=== PATIENT | female | born 1955 | race African-American/Black ===

== ENCOUNTER 2017-06-17 15:45 | Inpatient (IN) | payer OTHER ==
[~2017-06-17] VITALS: Ht 149.9 cm; Wt 52.6 kg
[~2017-06-17 15:45] MED LIST: ALBUTEROL0.09 MG/A2 IH; ASPIR 8181 MG PO; ATROVENT H0.017 MG/1; BACLOFEN10 MG PO; BENADRYL ALLERG25 M1 PO; CITALOPRAM20 M1 PO; CLARITIN10 MG PO; CLINDAMYCIN HC300 MG PO; COLACE100 MG PO; CYCLOBENZAPRINE5 MG PO; ELMIRON100 MG PO; ENFAMIL D-V400 IU/ML PO; FISH OIL1 CAP PO; FOL1 PO; FOLIC ACID1 MG PO; FUROSEMIDE20 MG PO; GEMFIBROZIL600 MG PO; GLYBURIDE5 MG PO; LAC PO; LEVAQUIN750 MG PO; LISINOPRIL10 MG PO; LORAZEPAM1 MG PO; MAG PO; MEDDP PO; METFORMIN ER500 M1 PO; METFORMIN HCL1000 MG PO; METFORMIN500 M1 PO; METOPROLOL SUCC25 M1 PO; MIRTAZAPINE15 M2 PO; NIC14 TD; NOR10T PO; PENTOXIFYL XR400 M1 PO; PEPCID20 MG PO; POTASSIUM CHLO10 MEQ PO; RABEPRAZOLE SOD20 MG PO; SIMVASTATIN40 M1 PO; THERAGRAN-M1 TA4 PO; THI100 PO; TRAMADOL HCL50 MG PO; VITAMIN B-11 TAB PO
[2017-06-17 16:07] VITALS: Ht 149.9 cm; Wt 52.6 kg
[2017-06-17 19:23] LABS: microscopic required? NO
[2017-06-17 19:31] LABS: urine erythrocyte NEGATIVE (NEGATIVE)
[2017-06-17 19:56] LABS: AMPHETAMINE QUAL UR NONE DETECTED (NEG <=1000)
[2017-06-17 20:03] LABS: BASOPHIL % 0.3 % (0-2); PLATELET COUNT 146 x10^3mcL (130-400); RED CELL DISTRIBUTION WIDTH 13.3 % (11.5-14.5)
[2017-06-17 20:11] LABS: CALCIUM 9.5 mg/dL (8.5-10.1); CARBON DIOXIDE 24.2 mmol/L (21-32); POTASSIUM SERUM 4.1 mmol/L (3.5-5.1)
[2017-06-17 20:23] LABS: ALBUMIN 3.1 g/dL (3.4-5.0); BILIRUBIN TOTAL 0.3 mg/dL (0.20-1.00); T4(THYROXINE) 4.8 ug/dL (4.7-13.3); TOTAL PROTEIN, SERUM 7.3 g/dL (6.4-8.2)
[2017-06-17] MEDS ORDERED: ATIVAN1 MG PO (21:00)
[2017-06-17] MEDS ORDERED: PHARMASSURE FO0.4 MG PO (21:00)
[2017-06-17] MEDS ORDERED: AVAPRO75 MG PO (21:00)
[2017-06-17] MEDS ORDERED: LOR PO (21:01)
[2017-06-17] MEDS ORDERED: BACLOFEN10 MG PO (21:01)
[2017-06-17] MEDS ORDERED: CELEXA20 MG PO (21:01)
[2017-06-17] MEDS ORDERED: ATRNS6 (21:01)
[2017-06-17] MEDS ORDERED: ASPIR 8181 MG PO (21:01)
[2017-06-17] MEDS ORDERED: CHILDREN'S5 MG/5 M1 PO (21:02)
[2017-06-17] MEDS ORDERED: LASIX20 MG PO (21:02)
[2017-06-17] MEDS ORDERED: METFORMIN HYDR500 M1 PO (21:02)
[2017-06-17] MEDS ORDERED: MIRTAZAPINE15 M2 PO (21:03)
[2017-06-17] MEDS ORDERED: POTASSIUM CHLO10 MEQ PO (21:03)
[2017-06-17] MEDS ORDERED: TOPROL XL25 MG PO (21:03)
[2017-06-17] MEDS ORDERED: NITROGLYCERIN0.4 MG SL (21:03)
[2017-06-17] MEDS ORDERED: PANTOPRAZOLE SO40 M1 PO (21:03)
[2017-06-17] MEDS ORDERED: SIMVASTATIN40 M1 PO (21:04)
[2017-06-17] MEDS ORDERED: PROMETHAZINE V118 M2 PO (21:04)
[2017-06-17] MEDS ORDERED: SYMBICORT1 AE3 INH (21:04)
[2017-06-17 22:04] VITALS: BP 121/54
[2017-06-17 22:55] VITALS: BP 121/54
[2017-06-18 00:16] LABS: MAGNESIUM 1.8 mg/dL (1.8-2.4); PHOSPHOROUS 3.6 mg/dL (2.5-4.9)
[2017-06-18 00:17] LABS: CHOLESTEROL/HDL RATIO 1.7
[2017-06-18 05:23] VITALS: BP 139/65
[2017-06-18 06:47] VITALS: BP 126/60
[2017-06-18 07:10] LABS: PLATELET COUNT 147 x10^3mcL (130-400); RED CELL DISTRIBUTION WIDTH 13.5 % (11.5-14.5)
[2017-06-18 07:15] LABS: BASOPHIL % 0 % (0-2)
[2017-06-18 07:33] LABS: CALCIUM 9.4 mg/dL (8.5-10.1); CARBON DIOXIDE 18.7 mmol/L (21-32); CREATININE SERUM 1.3 mg/dL (0.6-1.0); MAGNESIUM 1.7 mg/dL (1.8-2.4); PHOSPHOROUS 3.1 mg/dL (2.5-4.9); POTASSIUM SERUM 5.2 mmol/L (3.5-5.1)
[2017-06-18 10:08] VITALS: BP 137/65
[2017-06-18 12:33] LABS: CALCIUM 9.3 mg/dL (8.5-10.1); CARBON DIOXIDE 22.8 mmol/L (21-32); POTASSIUM SERUM 4.6 mmol/L (3.5-5.1)
[2017-06-18 15:23] VITALS: BP 126/57
[2017-06-18 18:28] VITALS: BP 121/61
[2017-06-18 20:59] VITALS: BP 129/56
[2017-06-19 05:35] VITALS: BP 25/83
[2017-06-19 07:35] LABS: PLATELET COUNT 176 x10^3mcL (130-400); RED CELL DISTRIBUTION WIDTH 13.4 % (11.5-14.5)
[2017-06-19 07:39] LABS: CALCIUM 9.5 mg/dL (8.5-10.1); CARBON DIOXIDE 24.9 mmol/L (21-32); CHLORIDE SERUM 109 mmol/L (98-107); CREATININE SERUM 0.6 mg/dL (0.6-1.0); GFR1 > 60 mL/min; GLUCOSE SERUM 152 mg/dL (74-106); POTASSIUM SERUM 4.8 mmol/L (3.5-5.1); SODIUM SERUM 142 mmol/L (136-145)
[2017-06-19 09:51] LABS: BAND NEUTROPHIL 7 % (0-10); BASOPHIL 0 % (0-2); MONOCYTE 7 % (0-7); SEGMENTED NEUTROPHILS 71 % (37-75)
[2017-06-19 09:52] LABS: PLATELET MORPHOLOGY PLATELETS NORMAL
[2017-06-19 10:43] VITALS: BP 143/67
[2017-06-19 14:19] VITALS: BP 144/60
[2017-06-19 17:19] VITALS: BP 142/63
[2017-06-19 22:02] VITALS: BP 112/67
[2017-06-20 06:24] VITALS: BP 149/63
[2017-06-20 09:26] VITALS: BP 141/63
[2017-06-20 12:49] VITALS: BP 146/57
[2017-06-20 16:35] VITALS: BP 146/57
[2017-06-20 17:40] VITALS: BP 125/76
[2017-06-20] MEDS ORDERED: LIB25 PO (18:47)
== END 2017-06-20 20:00 | disposition home or self-care (01) | DRG 190 ==
LOC: ED 15:45 → DU 20:47
PROVIDERS: Emergency Medicine; Family Medicine
DX: J44.1 Chronic obstructive pulmonary disease with (acute) exacerbation (principal); J96.00 Acute respiratory failure, unspecified whether with hypoxia or hypercapnia; E11.00 Type 2 diabetes mellitus with hyperosmolarity without nonketotic hyperglycemic-hyperosmolar coma (NKHHC); E87.1 Hypo-osmolality and hyponatremia; E44.0 Moderate protein-calorie malnutrition; D68.69 Other thrombophilia; E11.65 Type 2 diabetes mellitus with hyperglycemia; M94.0 Chondrocostal junction syndrome [Tietze]; M54.5 Low back pain; I10 Essential (primary) hypertension; I25.10 Atherosclerotic heart disease of native coronary artery without angina pectoris; F32.9 Major depressive disorder, single episode, unspecified; F17.210 Nicotine dependence, cigarettes, uncomplicated; Z79.82 Long term (current) use of aspirin; Z68.23 Body mass index [BMI] 23.0-23.9, adult; Z95.1 Presence of aortocoronary bypass graft; Z79.84 Long term (current) use of oral hypoglycemic drugs; G90.9 Disorder of the autonomic nervous system, unspecified
CPT/HCPCS: 36600; 82962; 83880; 87804; 97110-GP; 97116-GP; 97530-GP; 99406; G0480; J1956; J2920; J2930; J3475; J3490; J7030; J7040; J7613; J7620; J7626; J7644

== ENCOUNTER 2019-08-02 21:39 | Emergency (ER) | payer OTHER ==
[~2019-08-02] VITALS: Ht 149.9 cm; Wt 52.2 kg
[~2019-08-02 21:39] MED LIST changes: +ATIVAN1 MG PO; +ATRNS6; +AVAPRO75 MG PO; +CELEXA20 MG PO; +CHILDREN'S5 MG/5 M1 PO; +LASIX20 MG PO; +LIB25 PO; +LOR PO; +METFORMIN HYDR500 M1 PO; +NITROGLYCERIN0.4 MG SL; +PANTOPRAZOLE SO40 M1 PO; +PHARMASSURE FO0.4 MG PO; +PROMETHAZINE V118 M2 PO; +SYMBICORT1 AE3 INH; +TOPROL XL25 MG PO
[2019-08-02 21:54] VITALS: BP 162/90; Ht 149.9 cm; Wt 52.2 kg
== END 2019-08-03 01:03 | disposition left against medical advice (07) ==
LOC: ED 21:39
DX: Z13.9 Encounter for screening, unspecified (principal); K06.8 Other specified disorders of gingiva and edentulous alveolar ridge; I10 Essential (primary) hypertension; E11.9 Type 2 diabetes mellitus without complications